=== PATIENT | female | born 1970 | race Caucasian/White ===

== ENCOUNTER 2018-08-27 12:52 | Emergency (ER) | payer SELFPAY ==
[~2018-08-27] VITALS: Ht 157.5 cm; Wt 66.4 kg
[2018-08-27 12:58] VITALS: BP 166/87
== END 2018-08-27 14:14 | disposition home or self-care (01) ==
LOC: ED 14:01
DX: L20.84 Intrinsic (allergic) eczema (principal); L30.1 Dyshidrosis [pompholyx]; F17.200 Nicotine dependence, unspecified, uncomplicated
CPT/HCPCS: 99283